=== PATIENT | female | born 1940 | race Caucasian/White ===

== ENCOUNTER → 2016-11-04 | Outpatient (CLI) | payer MEDICARE, BC ==
[~2016-11-04] MED LIST: ADCIRCA20 MG PO; AMBIEN 5MG TABLE5 MG PO; ARICEPT10 MG PO; ASPIRIN 81M81 MG/TA2 PO; B COMPLEX #11 TAB PO; CALCIUM 600-D 61 TAB PO; CALCIUM600 M2 PO; CORDARONE200 MG/TAB PO; COREG 3.123.125 MG/T PO; COREG 6.256.25 MG/TA PO; COREG12.5 MG PO; DESYREL 50MG50 MG PO; DIOVAN 80MG80 MG PO; FISH OIL SUPER1 SGL PO; FLAX SEED OIL1000 MG PO; FLONASEALLERGY NS; FOLIC ACID 11 MG/TA1 PO; IMDUR 60MG60 MG/TAB PO; IPRATROPIUM BROM3 M1 IH; IRON325 M2 PO; IRON325 MG PO; K-DUR 2020 MEQ PO; K-TAB20 PO; LASIX 40MG TABL40 MG PO; LASIX 80MG TABL80 MG PO; LETAIRIS10 MG PO; LEVAQUIN 5500 MG/TA1 PO; LIPITOR 10MG10 MG PO; MAG-OX 400400 MG/TAB PO; MICARDIS40 MG PO; NAMENDA 10MG TA10 MG PO; OMNARIS50 MCG/Act NS; PRAVACHOL 40MG40 MG PO; PREDNISONE10 MG PO; PREMARIN 1.251.25 MG PO; PRILOSEC 20MG20 MG PO; PROVENTIL0.09 MG/A1 IH; RESTASIS 60VL OT; RT SPIRIVA18 MCG IH; SINGULAIR 110 MG/TAB PO; SYNTHROID 0.10.15 MG PO; THEO-24100 MG PO; TOPAMAX 100MG100 M1 PO; ULTRAM 50MG TAB50 MG PO; VIT B-6100 MG PO; VITAMIN B121000 MC2 SL; VYTORIN 10 MG-41 TAB PO; XANAX 0.5MG0.5 MG PO; XARELTO20 MG PO; ZYLOPRIM 100MG100 MG PO; ZYRTEC 10MG10 MG PO
== END ==
LOC: COL.VAS 13:19
DX: I27.2 Other secondary pulmonary hypertension (principal); I48.91 Unspecified atrial fibrillation; I49.3 Ventricular premature depolarization; I08.1 Rheumatic disorders of both mitral and tricuspid valves; R94.39 Abnormal result of other cardiovascular function study

== ENCOUNTER 2016-12-21 06:30 | Day surgery (SDC) | payer MEDICARE, BC ==
[~2016-12-21] VITALS: Ht 156.2 cm; Wt 77.0 kg
[~2016-12-21 06:30] MED LIST changes: -B COMPLEX #11 TAB PO; -COREG 3.123.125 MG/T PO; -COREG 6.256.25 MG/TA PO; -K-TAB20 PO; -XARELTO20 MG PO
[2016-12-21 07:19] VITALS: BP 131/95; PULSE 74; TEMP 97
[2016-12-21 07:44] LABS: HEMATOCRIT 38.5 % (37.0-47.0); HEMOGLOBIN 12.9 g/dl (12.5-16.0); MEAN CELL VOLUME 104 fl (80.0-100.0); MEAN CORPUSCULAR HEMOGLOBIN 35 pg (27.0-31.0); MEAN CORPUSCULAR HGB CONC 34 g/dl (33.0-37.0); MEAN PLATELET VOLUME 10.5 fl (7.4-10.4); PLATELET COUNT 176 K/mm3 (130-400); RED BLOOD COUNT 3.72 M/mm3 (4.10-5.30); REDCELL DISTRIBUTION WIDTH-CV 13.9 % (11.5-14.5); WHITE BLOOD COUNT 6.7 K/mm3 (4.8-10.8)
[2016-12-21 07:45] LABS: PROTHROMBIN TIME 22.8 SECONDS (9.7-12.8)
[2016-12-21 07:47] LABS: CREATININE, serum 1.35 mg/dL (0.52-1.25); POTASSIUM 3.2 mmol/L (3.4-5.0)
[2016-12-21] MEDS ORDERED: LASIX 80MG TABL80 MG PO (09:03)
[2016-12-21] MEDS ORDERED: XARELTO20 MG PO (09:10)
[2016-12-21] MEDS ORDERED: COREG12.5 MG PO (09:11)
[2016-12-21] MEDS ORDERED: K-TAB20 PO (09:11)
[2016-12-21] MEDS ORDERED: THEO-24100 MG PO (09:12)
[2016-12-21] MEDS ORDERED: MICARDIS40 MG PO (09:12)
[2016-12-21] MEDS ORDERED: B COMPLEX #11 TAB PO (09:13)
[2016-12-21 10:00] VITALS: BP 90/48; PULSE 65
[2016-12-21 10:45] VITALS: BP 88/43; PULSE 64
[2016-12-21] MEDS ORDERED: COREG 6.256.25 MG/TA PO (10:59)
[2016-12-21] MEDS ORDERED: COREG 3.123.125 MG/T PO (11:01)
[2016-12-21 11:15] VITALS: BP 128/58; PULSE 20
== END 2016-12-21 12:21 | disposition home or self-care (01) ==
LOC: COL.RAD 06:30
PROVIDERS: Internal Medicine Cardiovascular Disease
DX: I48.0 Paroxysmal atrial fibrillation (principal); I08.1 Rheumatic disorders of both mitral and tricuspid valves
CPT/HCPCS: J0330; J2704

== ENCOUNTER → 2017-12-28 | Outpatient (CLI) | payer MEDICARE, BC ==
[~2017-12-28] MED LIST changes: +B COMPLEX #11 TAB PO; +COREG 3.123.125 MG/T PO; +COREG 6.256.25 MG/TA PO; +K-TAB20 PO; +XARELTO20 MG PO
[2017-12-28 12:04] LABS: BASO # 0.1 (0.0-0.2); BASO % 0.6 % (0.0-2.0); EOS # 0.2 (0.0-0.7); EOS % 1.9 % (0-4.0); GRAN % 69.4 % (42.2-75.2); HEMATOCRIT 37.5 % (37.0-47.0); HEMOGLOBIN 12.7 g/dl (12.5-16.0); LYMPH # 1.8 (1.2-3.4); LYMPH % 20.7 % (20.0-51.0); MEAN CELL VOLUME 102 fl (80.0-100.0); MEAN CORPUSCULAR HEMOGLOBIN 35 pg (27.0-31.0); MEAN CORPUSCULAR HGB CONC 34 g/dl (33.0-37.0); MEAN PLATELET VOLUME 10.4 fl (7.4-10.4); MONO # 0.6 (0.1-0.6); MONO % 6.9 % (1.7-9.3); PLATELET COUNT 181 K/mm3 (130-400); RED BLOOD COUNT 3.67 M/mm3 (4.10-5.30); REDCELL DISTRIBUTION WIDTH-CV 13.5 % (11.5-14.5)
[2017-12-28 12:16] LABS: ALBUMIN 3.6 gm/dL (3.5-5.0); BILIRUBIN,TOTAL 0.4 mg/dL (0.0-1.0); CREATININE, serum 1.6 mg/dL (0.52-1.25); POTASSIUM 3.2 mmol/L (3.4-5.0); TOTAL PROTEIN 6.8 gm/dL (6.4-8.2)
[2017-12-28 12:35] LABS: BILIRUBIN UNCONJUGATED 0.2 mg/dL (0.0-1.1); BILIRUBIN,DIRECT 0.3 mg/dL (0.0-0.4)
[2017-12-28 12:47] LABS: THYROID STIMULATING HORMONE 1.1 uIU/mL (0.465-4.680)
[2017-12-28 13:45] LABS: THEOPHYLLINE 4.7 ug/mL (10.0-20.0)
== END ==
LOC: COL.VAS 10:30
PROVIDERS: Internal Medicine Pulmonary Disease
DX: I36.1 Nonrheumatic tricuspid (valve) insufficiency (principal); I37.1 Nonrheumatic pulmonary valve insufficiency; I27.20 Pulmonary hypertension, unspecified; E78.2 Mixed hyperlipidemia; J45.30 Mild persistent asthma, uncomplicated

== ENCOUNTER → 2018-06-23 | Outpatient (CLI) | payer MEDICARE, BC ==
[2018-06-23 11:22] LABS: BASO # 0.1 (0.0-0.2); BASO % 0.6 % (0.0-2.0); EOS # 0.1 (0.0-0.7); EOS % 1.6 % (0-4.0); GRAN # 6.1 (1.4-6.5); GRAN % 70.9 % (42.2-75.2); HEMATOCRIT 39.5 % (37.0-47.0); HEMOGLOBIN 13.2 g/dl (12.5-16.0); LYMPH # 1.7 (1.2-3.4); LYMPH % 19.7 % (20.0-51.0); MEAN CELL VOLUME 103 fl (80.0-100.0); MEAN CORPUSCULAR HEMOGLOBIN 34 pg (27.0-31.0); MEAN CORPUSCULAR HGB CONC 33 g/dl (33.0-37.0); MEAN PLATELET VOLUME 10.8 fl (7.4-10.4); MONO # 0.6 (0.1-0.6); MONO % 6.9 % (1.7-9.3); PLATELET COUNT 160 K/mm3 (130-400); RED BLOOD COUNT 3.85 M/mm3 (4.10-5.30); REDCELL DISTRIBUTION WIDTH-CV 14.3 % (11.5-14.5)
[2018-06-23 11:33] LABS: ALBUMIN 4.1 gm/dL (3.5-5.0); BILIRUBIN,TOTAL 0.5 mg/dL (0.0-1.0); CALCIUM 9.3 mg/dL (8.4-10.2); CREATININE, serum 1.47 mg/dL (0.52-1.25); POTASSIUM 3.4 mmol/L (3.4-5.0); TOTAL PROTEIN 7.2 gm/dL (6.4-8.2)
[2018-06-23 12:03] LABS: THYROID STIMULATING HORMONE 0.626 uIU/mL (0.465-4.680)
== END ==
LOC: COL.VAS 09:00
PROVIDERS: Internal Medicine Pulmonary Disease
DX: I27.0 Primary pulmonary hypertension (principal); I08.1 Rheumatic disorders of both mitral and tricuspid valves; R53.83 Other fatigue

== ENCOUNTER → 2019-06-27 | Outpatient (CLI) | payer MEDICARE, BC | LOC: COL.VAS 12:44 | DX: I27.20 Pulmonary hypertension, unspecified (principal); I08.1 Rheumatic disorders of both mitral and tricuspid valves ==

== ENCOUNTER 2019-10-22 13:39 | Inpatient (IN) | payer MEDICARE, BC ==
[2019-10-22] VITALS (206 sets, daily range): BP systolic 124–126; BP diastolic 60–63; PULSE 47–56; TEMP 98.4–98.5; O2SAT 86–100
[~2019-10-22] VITALS: Ht 160 cm; Wt 82.3 kg
[2019-10-22 14:46] LABS: BASO # 0.1 (0.0-0.2); BASO % 0.8 % (0.0-2.0); EOS # 0.1 (0.0-0.7); EOS % 1.3 % (0-4.0); GRAN # 6.5 (1.4-6.5); GRAN % 69.7 % (42.2-75.2); HEMATOCRIT 37.1 % (37.0-47.0); HEMOGLOBIN 12.2 g/dl (12.5-16.0); LYMPH % 21.4 % (20.0-51.0); MEAN CELL VOLUME 103 fl (80.0-100.0); MEAN CORPUSCULAR HEMOGLOBIN 34 pg (27.0-31.0); MEAN CORPUSCULAR HGB CONC 33 g/dl (33.0-37.0); MEAN PLATELET VOLUME 11.3 fl (7.4-10.4); MONO # 0.6 (0.1-0.6); MONO % 6.4 % (1.7-9.3); PLATELET COUNT 164 K/mm3 (130-400)
[2019-10-22 14:51] LABS: PROTHROMBIN TIME 11.3 SECONDS (9.7-12.8)
[2019-10-22 15:02] LABS: ALANINE AMINOTRANSFERASE 31 U/L (9-52); ALKALINE PHOSPHATASE 79 U/L (50-136); ANION GAP 11 mmol/L (7-16); AST,SGOT 42 U/L (15-37); BILIRUBIN,TOTAL 0.6 mg/dL (0.0-1.0); BLOOD UREA NITROGEN 37 mg/dL (7-17); C-REACTIVE PROTEIN < 0.5 mg/dL (0.0-0.9); CALCIUM 9.5 mg/dL (8.4-10.2); CARBON DIOXIDE 19 mmol/L (22-30); CHLORIDE 111 mmol/L (98-107); CREATININE, serum 1.88 (0.52-1.25); GLUCOSE 115 mg/dL (74-106); POTASSIUM 3.7 mmol/L (3.4-5.0); SODIUM 141 mmol/L (137-145); TOTAL PROTEIN 6.9 gm/dL (6.4-8.2)
[2019-10-22 15:03] LABS: COLLECTION METHOD CLEAN CATCH
[2019-10-22 15:14] LABS: PH 5 (5-8); SQUAMOUS EPITHELIAL 0-2 /hpf; URINE APPEARANCE Clear; URINE BACTERIA Rare /hpf; URINE BILIRUBIN Negative (NEGATIVE); URINE BLOOD Negative (NEGATIVE); URINE COLOR Straw; URINE GLUCOSE Negative (NEGATIVE); URINE KETONE Negative (NEGATIVE); URINE LEUKOCYTE ESTERASE Negative (NEGATIVE); URINE NITRATE Negative (NEGATIVE); URINE PROTEIN(semi-quant) Negative (NEGATIVE); URINE RBC None Seen /hpf; URINE UROBILINOGEN Negative (NEGATIVE)
[2019-10-22 15:25] LABS: CREATINE KINASE 234 U/L (30-135)
[2019-10-22 15:33] LABS: TROPONIN-I 0.089 ng/mL (0.000-0.035)
--- NOTE | 2019-10-22 17:18 | NUR ---
Pt admitted at this time to ICU bed 5 from ED. Pt arrived via stretcher and placed on bus driver/monitor upon arrival. Vitals stable at arrival. Dr. Tejada at bedside currently
[2019-10-22] MEDS ORDERED: MICARDIS40 MG PO (17:49)
[2019-10-22] MEDS ORDERED: REVATIO20 MG PO (17:57)
[2019-10-22] MEDS ORDERED: MOBIC15 MG PO (18:02)
[2019-10-22] MEDS ORDERED: B-12 500 MCG PO (18:09)
[2019-10-22] MEDS ORDERED: FLAXSEED OIL1000 MG PO (18:09)
[2019-10-22] MEDS ORDERED: VITAMIN B-6100 MG PO (18:10)
[2019-10-22] MEDS ORDERED: FLONASE NASAL S16 GM NS (18:11)
[2019-10-22] MEDS ORDERED: ANORO IH (18:11)
--- NOTE | 2019-10-22 18:31 | NUR ---
Admission assessment complete at this time. Plan of care reviewed at bedside with patient. Additional time taken to address any other needs or concerns. Vitals stable at this time. Pt denies pain or any other discomforts. Bed in low position, call light within reach, will continue to monitor.
--- NOTE | 2019-10-22 19:03 | NUR ---
Bedside report given to RALEIGH Ham.
[2019-10-23] VITALS (312 sets, daily range): BP systolic 107–159; BP diastolic 56–76; PULSE 57–69; TEMP 97.3–98.3; O2SAT 90–100
[2019-10-23 05:17] LABS: BASO # 0.1 (0.0-0.2); BASO % 0.7 % (0.0-2.0); EOS # 0.2 (0.0-0.7); EOS % 1.7 % (0-4.0); GRAN # 5.7 (1.4-6.5); GRAN % 64.7 % (42.2-75.2); HEMOGLOBIN 11.8 g/dl (12.5-16.0); LYMPH # 2.2 (1.2-3.4); LYMPH % 25.6 % (20.0-51.0); MEAN CELL VOLUME 103 fl (80.0-100.0); MEAN CORPUSCULAR HEMOGLOBIN 34 pg (27.0-31.0); MEAN CORPUSCULAR HGB CONC 33 g/dl (33.0-37.0); MEAN PLATELET VOLUME 11.2 fl (7.4-10.4); MONO # 0.6 (0.1-0.6); PLATELET COUNT 148 K/mm3 (130-400); RED BLOOD COUNT 3.45 M/mm3 (4.10-5.30); REDCELL DISTRIBUTION WIDTH-CV 14.3 % (11.5-14.5)
[2019-10-23 05:20] LABS: HEMATOCRIT 35.4 % (37.0-47.0)
[2019-10-23 05:26] LABS: CALCIUM 9.4 mg/dL (8.4-10.2); CREATININE, serum 2.13 (0.52-1.25); POTASSIUM 4.2 mmol/L (3.4-5.0)
[2019-10-23 05:38] LABS: MAGNESIUM 2.1 mg/dL (1.6-2.3)
[2019-10-23 05:39] LABS: TROPONIN-I 0.089 ng/mL (0.000-0.035)
--- NOTE | 2019-10-23 10:37 | NUR ---
CHUTE MAN student attended clinical rounds with the team. PT/OT ordered and Cardiology consulted. The patient may transfer to the floor this day.
--- NOTE | 2019-10-23 15:22 | NUR ---
DIRECTOR REGULATORY AFFAIRS student met with the patient to complete initial intake. The patient lives alone in [place]. The patient denies DME usage and is independent with ADLs. The patient's PCP is Dr. Kwan and patient receives medications from [facility]. The patient has advanced directives in the EMR. They designate Nara Fierro. However, the patient no longer has contact with Nara. The patient wanted to make a new DPOA for HC. The patient designates Corinne Guzman as her new DPOA-HC. The patient did not want the original. The original was placed in the chart and a copy was taken directly to medical records. community services officer will continue to follow to ensure a safe discharge.
--- NOTE | 2019-10-23 19:15 | NUR ---
Received report from RALEIGH Hardin.
[2019-10-24] VITALS (7 sets, daily range): BP systolic 94–144; BP diastolic 49–98; PULSE 54–93; TEMP 97.3–98.6
--- NOTE | 2019-10-24 07:36 | NUR ---
Report given to RALEIGH Hardin.
[2019-10-24 07:59] LABS: BASO % 0.5 % (0.0-2.0); EOS # 0.2 (0.0-0.7); EOS % 1.7 % (0-4.0); GRAN # 5.3 (1.4-6.5); GRAN % 60.7 % (42.2-75.2); HEMATOCRIT 38.3 % (37.0-47.0); HEMOGLOBIN 12.6 g/dl (12.5-16.0); LYMPH # 2.5 (1.2-3.4); LYMPH % 28.6 % (20.0-51.0); MEAN CELL VOLUME 103 fl (80.0-100.0); MEAN CORPUSCULAR HEMOGLOBIN 34 pg (27.0-31.0); MEAN CORPUSCULAR HGB CONC 33 g/dl (33.0-37.0); MEAN PLATELET VOLUME 11.4 fl (7.4-10.4); MONO # 0.7 (0.1-0.6); PLATELET COUNT 166 K/mm3 (130-400); RED BLOOD COUNT 3.71 M/mm3 (4.10-5.30); REDCELL DISTRIBUTION WIDTH-CV 14.5 % (11.5-14.5)
[2019-10-24 08:04] LABS: CALCIUM 9.8 mg/dL (8.4-10.2); CREATININE, serum 1.85 (0.52-1.25); MAGNESIUM 2.1 mg/dL (1.6-2.3); POTASSIUM 3.7 mmol/L (3.4-5.0)
--- NOTE | 2019-10-24 10:53 | NUR ---
Initial visit; Patient thanked Multiple Knife Edge Trimmer Operator for looking in on her, visiting and offering spiritual care.
--- NOTE | 2019-10-24 15:14 | NUR ---
SECTION [employer] student met with the patient to discuss post acute rehab. SE[employer] student provided Medicare.gov's list of post acute rehab facilities in the patient's geographical location. The patient's first choices is [facility] and [facility] [place]. The patient choice form was signed and placed in the chart. Referrals made. Awaiting responses. The patient to transfer to medical floor this day.
--- NOTE | 2019-10-24 15:42 | NUR ---
Maura from [facility] reports they can accept the patient for a longterm stay.
--- NOTE | 2019-10-24 15:45 | NUR ---
Transferred to room 356 via WC. Report provided to RALEIGH Guardado. Belongings placed in closet. Oriented patient to call system.
--- NOTE | 2019-10-24 19:26 | NUR ---
Report given to oncoming shift. Patient does verbalize that she is having some generalized pain, "feels sore." Did request pain medication and was administered PRN tramadol. Patient independently moved legs up into bed. Does grimace during this. Call light and personal items are within reach.
--- NOTE | 2019-10-24 21:00 | NUR ---
Patient assessed at this time. Alert and oriented x 4, and able to make needs known. Denies having pain and discomfort at this time. Peripheral IV to left forearm. Denies SOB and dypsnea. LS CTA. Respirations even and unlabored. HRR. Telemetry in place: sinus. Capillary refill less than 3 seconds. Non-tenting skin turgor. BSAx4. Abdomen soft and non-tender. No edema. Voices no questions, needs, or concerns at this time. Resting in bed with call light within reach.
--- NOTE | 2019-10-24 23:35 | NUR ---
Patient complaining of pain to hip. Given PRN Ultram as requested for pain.
[2019-10-25 03:11] VITALS: BP 111/70; PULSE 60; TEMP 97.6
--- NOTE | 2019-10-25 03:30 | NUR ---
Patient currently on oxygen at 2 L/min via NC. Wears oxygen at home during the night. Reports feeling constipated. Had been given Colace as HS. Given prune juice as requested at this time. BSAx4. Abomen soft and non-tender.
[2019-10-25 03:51] VITALS: BP 11/40; BP 111/40; PULSE 57; TEMP 98.6
--- NOTE | 2019-10-25 05:30 | NUR ---
Patient has received PRN Ultram once this shift for pain. Updated on MRI that is scheduled. Voices no questions, needs, or concerns. Resting in bed with call light within reach.
[2019-10-25 07:32] VITALS: BP 145/63; PULSE 56; TEMP 98.3
--- NOTE | 2019-10-25 08:30 | NUR ---
Patient awake and sitting up in chair at time of assessment. Patient is alert and oriented and does not complain of pain. She is educated on her MRI coming up this morning. She has generalized bruising on her forearms and up to elbows, with one large bruise on either elbow from a recent fall and several smaller bruises from anticoagulation. No concerns are voiced at this time.
[2019-10-25 12:38] VITALS: BP 142/56; PULSE 62; TEMP 97.4
--- NOTE | 2019-10-25 12:38 | NUR ---
Follow-up visit; Patient thanked Lap Regulator for looking in on her again today and wishing her well.
--- NOTE | 2019-10-25 17:16 | NUR ---
Head Operator was notified by SUZAN Martínez Director that patient is too functional and they can not accept referral. MARK Dorman spoke with HEATH and reported that patient would like to go to [facility]. HEATH contacted Cristiana at [facility] who will review referral. Cristiana followed up and advised they could accept referral. HEATH met with patient who reports SW will need to contact her DPOA to establish transportation. Patient also reports that she plans to go home before going to to shower and gather some of her belongings. HEATH contacted patient's DPOA, Ramesh who expressed concern about patient goint to the [facility] as they are "full of flu there". Ramesh also advised that it would be at least three hours until she could bulk picker patient. HEATH contacted Cristiana who advised patient would need to arrive by 1900 if dischare is today. Cristiana advised that patient can go home before arriving to gather belongings however patient should be discouraged from showering at home due to fall risk. HEATH met with patient and Hospitalist to provide this update. HEATH and Hospitalist both advised patient to not shower at home but to wait until arriving at to have assistance with shower. Patient called Ramesh and it was decided that she will go to tomorrow, not tonight. Ramesh advised she will bulk picker patient at 0900 tomorrow. Patient plans to go to her house to obtain her hearing aides, clothes, and inhaler then will go to [facility]. HEATH obtained report #'s for accepting physician and RN report from Brielle then placed numbers on patient's chart. HEATH provided update to Hospitalist and RNDebby. HEATH notified Maura nunez [facility] of discharge plan and thanked her for reviewing referral. Patient to discharge to [facility] tomorrow with Ramesh providing transportation.
[2019-10-25 17:20] VITALS: BP 158/64; PULSE 72; TEMP 97.4
--- NOTE | 2019-10-25 19:16 | NUR ---
Patient had MRI of L hip with contrast this morning. She has been awake in her room throughout the day, ambulating with walker to the bathroom as needed. She has an otherwise uneventful day. This evening at 1800 she voiced pain of 10/10 in her ankles because she has been on her feet so much today. 50 mg ultram administered for this complaint. She is currently eating dinner in bed. Shift report given to shift boss RNAmy.
[2019-10-25 20:00] VITALS: BP 134/90; PULSE 66; TEMP 97.5
--- NOTE | 2019-10-25 20:00 | NUR ---
Patient assessed at this time. Alert and oriented x 4, and able to make needs known. Reports level 8 pain to hip. Given PRN APAP as requested for pain. Peripheral IV to left forearm. Denies having SOB and dyspnea. LS CTA. Respirations even and unabored. Put on oxygen at 2 L/min via NC at night per baseline. HRR. Telemetry in place: sinus. Capillary refill less than 3 seconds. Non-tenting skin turgor. BSAx4. Abdomen soft and non-tender. No edema. Voices no questions, needs, or concerns at this time. Resting in bed with call light within reach.
[2019-10-26 00:54] VITALS: BP 117/47; PULSE 51; TEMP 98
[2019-10-26 05:00] VITALS: BP 119/54; PULSE 50; TEMP 98.2
--- NOTE | 2019-10-26 06:09 | NUR ---
Patient received PRN Ultram as requested for pain during the night. States that it didn't help much to her left knee. Has been getting up independently to go to the bathroom. Voices no questions, needs, or concerns at this time. Resting in bed with call light within reach.
[2019-10-26 06:57] LABS: BASO % 0.6 % (0.0-2.0); EOS # 0.2 (0.0-0.7); EOS % 2.6 % (0-4.0); GRAN # 3.6 (1.4-6.5); GRAN % 55.7 % (42.2-75.2); HEMOGLOBIN 11.3 g/dl (12.5-16.0); LYMPH # 2.1 (1.2-3.4); MEAN CELL VOLUME 103 fl (80.0-100.0); MEAN CORPUSCULAR HEMOGLOBIN 34 pg (27.0-31.0); MEAN CORPUSCULAR HGB CONC 33 g/dl (33.0-37.0); MEAN PLATELET VOLUME 11.2 fl (7.4-10.4); MONO # 0.6 (0.1-0.6); MONO % 8.8 % (1.7-9.3); PLATELET COUNT 149 K/mm3 (130-400); RED BLOOD COUNT 3.36 M/mm3 (4.10-5.30); REDCELL DISTRIBUTION WIDTH-CV 14.2 % (11.5-14.5)
[2019-10-26 07:06] LABS: HEMATOCRIT 34.7 % (37.0-47.0)
[2019-10-26 07:08] LABS: CALCIUM 8.9 mg/dL (8.4-10.2); CREATININE, serum 1.81 (0.52-1.25); POTASSIUM 4.1 mmol/L (3.4-5.0)
[2019-10-26 07:46] VITALS: BP 146/56; PULSE 76; TEMP 98.6
[2019-10-26] MEDS ORDERED: XARELTO15 MG PO (08:24)
[2019-10-26] MEDS ORDERED: ULTRAM 50MG TAB50 MG PO (08:25)
[2019-10-26] MEDS ORDERED: TYLENOL 325MG325 MG PO (08:25)
--- NOTE | 2019-10-26 10:39 | NUR ---
Pt assessment completed and charted. Morning medications administered per OCT. Pt sitting in bed, A&O, independent on room air. Breathing is even and unlabored. Pt denies pain, states she has a toothache. Scattered bruising noted to forearms from IV pokes. LFA INT IV dc'd w/ catheter tip intact. Skin tear occured when removing tegaderm, pt has very fragile skin. Bandaid placed over skin, wrapped with coban. Pts ride arrived to take her to [facility]. Staff was awaiting for Dr. Baeza to speak with physician at other facility before officially discharging/escorting out. This nurse was called by charge to inform me that pt decided to go ahead and leave. This nurse found pt and ride downstairs getting in vehicle. Informed pt we were waiting on a phone call from the other physician at the facility she was going to. Pt stated she would "wait there" referring to [facility]. Transfer paperwork was given to pt and she safely got into car. Report called to RALEIGH Garzon at [facility], all questions answered.
--- NOTE | 2019-10-26 11:23 | NUR ---
Clinic Scheduler collaborated with Hospitalist and patient to discharge to [facility] this morning. SW was contacted by Cristiana at [facility] who advised provider has changed and it will be Dr. Reyna at [phone]. HEATH provided number to Hospitalist who provided report to Dr. Reyna. HEATH provided report number to RNTisha. HEATH faxed discharge orders to [facility] and confirmed they were received. Patient's DPRamesh SALAMANCA will provide transportation to [facility] this morning. No additional needs identified at this time.
== END 2019-10-26 10:51 | disposition swing bed (61) | DRG 309 ==
LOC: COL.ER 13:39 → ICU 16:12 → MEDICAL 10-24 15:20
PROVIDERS: Emergency Medicine; Physician Assistant; ADMIT Internal Medicine
DX: R00.1 Bradycardia, unspecified (principal); I50.32 Chronic diastolic (congestive) heart failure; I48.20 Chronic atrial fibrillation, unspecified; N18.9 Chronic kidney disease, unspecified; K21.9 Gastro-esophageal reflux disease without esophagitis; E11.22 Type 2 diabetes mellitus with diabetic chronic kidney disease; F03.90 Unspecified dementia, unspecified severity, without behavioral disturbance, psychotic disturbance, mood disturbance, and anxiety; J44.9 Chronic obstructive pulmonary disease, unspecified; I27.20 Pulmonary hypertension, unspecified; W18.30XA Fall on same level, unspecified, initial encounter; I25.10 Atherosclerotic heart disease of native coronary artery without angina pectoris; R78.89 Finding of other specified substances, not normally found in blood; R53.81 Other malaise; Z91.81 History of falling; Y92.009 Unspecified place in unspecified non-institutional (private) residence as the place of occurrence of the external cause; Z79.84 Long term (current) use of oral hypoglycemic drugs; Z79.01 Long term (current) use of anticoagulants; Z88.0 Allergy status to penicillin; Z88.2 Allergy status to sulfonamides; Z88.6 Allergy status to analgesic agent
CPT/HCPCS: 99223-AI; 99231-AI; 99232-AI; 99239; J7030